=== PATIENT | female | born 1975 | race Hispanic/Latino ===

== ENCOUNTER 2017-11-13 16:16 | Emergency (ER) | payer SELFPAY ==
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
[2017-11-13] MEDS ORDERED: Acetaminophen/Codeine 30-300mg Tablet ONE ×2 (17:29→17:36)
[2017-11-13] MEDS ORDERED: Ketorolac Tromethamine 30 MG/ML VIAL ONE (17:29)
== END 2017-11-13 18:23 | disposition home or self-care (01) ==
LOC: ERS 16:16
DX: S52.601A Unspecified fracture of lower end of right ulna, initial encounter for closed fracture (principal); M06.9 Rheumatoid arthritis, unspecified; F32.9 Major depressive disorder, single episode, unspecified; F17.210 Nicotine dependence, cigarettes, uncomplicated; W22.8XXA Striking against or struck by other objects, initial encounter
CPT/HCPCS: 96372; J1885

== ENCOUNTER 2018-02-22 00:53 | Inpatient (IN) | payer SELFPAY ==
[2018-02-22] MEDS ORDERED: Ketorolac Tromethamine 30 MG/ML VIAL ONE (01:44)
[2018-02-22] MEDS ORDERED: Morphine 4 MG/ML VIAL SLOW IVP PRN (04:26)
[2018-02-22] MEDS ORDERED: Ondansetron HCl/PF 4 MG/2 ML Vial IVP PRN ×3 (04:26→05:38)
[2018-02-22] MEDS ORDERED: Ondansetron ODT 4 MG TAB SL PRN (04:26)
[2018-02-22 04:57] VITALS: BMI 33.0
[2018-02-22] MEDS ORDERED: Dextrose 5% in Water 1,000 ML IV PRN (05:05)
[2018-02-22] MEDS ORDERED: Ondansetron ODT 4 MG TAB PO PRN ×2 (05:05→05:38)
[2018-02-22] MEDS ORDERED: Dextrose 50% Abboject 50 ML SYRINGE SLOW IVP PRN (05:05)
[2018-02-22] MEDS ORDERED: traMADol HCl 50 MG TAB PO PRN ×2 (05:05)
[2018-02-22] MEDS ORDERED: Cyclobenzaprine 10 MG TAB PO PRN (05:05)
[2018-02-22] MEDS ORDERED: Promethazine HCl 25 MG/ML VIAL IM PRN ×2 (05:05)
[2018-02-22] MEDS ORDERED: Acetaminophen 1,000 MG in Premix Bag 1 BAG IVPB SCH (05:05)
[2018-02-22] MEDS ORDERED: hydrALAZINE 20 MG/ML VIAL SLOW IVP PRN (05:38)
[2018-02-22 06:26] LABS: #Eosinphils 0.1 thou/uL (0.0-0.7); #Lymphocytes 2.5 thou/uL (1.20-3.40); #Monocytes 1.2 thou/uL (0.11-0.59); #Neutrophils 13.5 thou/uL (1.40-6.50); %Basophils 0.2 % (0.0-1.0); %Eosinophils 0.4 % (0.0-10.0); %Lymphocytes 14.4 % (21.0-51.0); %Monocytes 6.7 % (0.0-10.0); %Neutrophils 78.4 % (42.0-75.0); Mean Corpuscular HGB CONC 33.6 g/dL (32.0-36.0); Mean Corpuscular Hemoglobin 32.7 pg (27.0-31.0); Mean Corpuscular Volume 97.4 fL (78.0-98.0); Mean Platelet Volume 7.1 fL (7.4-10.4); Platelet Count 224 thou/uL (130-400); RBC Distribution Width 11.3 % (11.5-14.5); Red Blood Cell (RBC) Count 3.97 mill/uL (4.20-5.40); White Blood Cell (WBC) Count 17.2 thou/uL (4.8-10.8)
[2018-02-22] MEDS: Sodium Chloride 0.9% 1,000 ML IV SCH ×2 (06:26→17:12)
[2018-02-22] MEDS: Ibuprofen 800 MG TAB PO SCH ×2 (06:27→17:12)
[2018-02-22 06:41] LABS: ALT (SGPT) 16 U/L (8-55); AST (SGOT) 15 U/L (5-34); Albumin 3.7 g/dL (3.5-5.0); Alkaline Phosphatase 59 U/L (40-150); Anion Gap 9 mmol/L (10-20); BUN (Urea Nitrogen) 13 mg/dL (7.0-18.7); Bilirubin, Total 0.5 mg/dL (0.2-1.2); Calc. Creatinine Clearance 152 mL/min (70-130); Calcium 8.4 mg/dL (7.8-10.44); Carbon Dioxide 24 mmol/L (22-29); Chloride 108 mmol/L (98-107); Estimated GFR-MDRD Greater than 90; Globulin 2.3 g/dL (2.4-3.5); Glucose 100 mg/dL (70-105); Potassium 3.9 mmol/L (3.5-5.1); Sodium 137 mmol/L (136-145)
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
[2018-02-22] MEDS ORDERED: Famotidine 20 MG TAB PO SCH ×2 (09:00)
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
[2018-02-22] MEDS ORDERED: Acetaminophen 500 MG TAB PO SCH (12:00)
[2018-02-22] MEDS ORDERED: HYDROcodone/Acetaminophen 7.5/325 mg Tablet PO SCH (13:15)
[2018-02-22] MEDS ORDERED: ISOVUE-370 76%-LOCM 1 ML ONE (15:15)
[2018-02-22 17:07] VITALS: BP 105/69; TEMP 97.8
== END 2018-02-22 17:14 | disposition home or self-care (01) | DRG 565 ==
LOC: ERS 00:53 → SURG A 02:44
PROVIDERS: ADMIT Specialist; ATTEND Specialist
DX: S22.20XA Unspecified fracture of sternum, initial encounter for closed fracture (principal); S06.0X9A Concussion with loss of consciousness of unspecified duration, initial encounter; M19.90 Unspecified osteoarthritis, unspecified site; M79.7 Fibromyalgia; M06.9 Rheumatoid arthritis, unspecified; F17.210 Nicotine dependence, cigarettes, uncomplicated; Z88.0 Allergy status to penicillin; V89.2XXA Person injured in unspecified motor-vehicle accident, traffic, initial encounter
CPT/HCPCS: 36415; 70450; 71045; 71260; 72125; 74177; 80053; 85025; 94640; 96374; 96375; G0390; J0131; J1885; J2270; J7620; L0120

== ENCOUNTER 2018-06-27 17:34 | Emergency (ER) | payer OTHER, SELFPAY ==
[2018-06-27 18:55] LABS: #Eosinphils 0.1 thou/uL (0.0-0.7); #Lymphocytes 2.5 thou/uL (1.20-3.40); #Monocytes 0.9 thou/uL (0.11-0.59); #Neutrophils 7.5 thou/uL (1.40-6.50); %Basophils 0.3 % (0.0-1.0); %Eosinophils 1.2 % (0.0-10.0); %Lymphocytes 22.8 % (21.0-51.0); %Monocytes 8.1 % (0.0-10.0); %Neutrophils 67.6 % (42.0-75.0); Hemoglobin 14.5 g/dL (12.0-16.0); Platelet Count 291 thou/uL (130-400); RBC Distribution Width 11.9 % (11.5-14.5); Red Blood Cell (RBC) Count 4.38 mill/uL (4.20-5.40)
[2018-06-27 18:57] LABS: Bilirubin Negative (Negative); Blood, Urine Negative (Negative); Clarity CLOUDY (Clear); Glucose, Urine (Dipstick) Negative (Negative); Leukocyte Negative (Negative); Nitrite Negative (Negative); Protein, Urine (Dipstick) Negative (Neg-Trace); Specific Gravity, Urine 1.018 (1.002-1.036)
[2018-06-27 19:03] LABS: BHCG - Serum Negative (NEGATIVE); Pregs Control Background? CLEAR/WHITE (CLR/WHITE); Pregs Control Bar Appear? YES (CONTROL BAR)
[2018-06-27 19:07] LABS: Amphetamine Not Detected (NotDetected); Barbiturates Screen Not Detected (NotDetected); Benzodiazepine Screen Not Detected (NotDetected); Cocaine Metabolite Screen Not Detected (NotDetected); Medtox Control Line Valid? VALID (VALID); Medtox Reader # READER 4; Methadone Not Detected (NotDetected); Methamphetamine Not Detected (NotDetected); Opiate Screen Not Detected (NotDetected); Oxycodone Screen Not Detected (NotDetected); Phencyclidine (PCP) Not Detected (NotDetected); THC/Cannabinoid Screen Detected (NotDetected); Tricyclic Screen Detected (NotDetected)
[2018-06-27 19:13] LABS: ALT (SGPT) 10 U/L (8-55); AST (SGOT) 10 U/L (5-34); Albumin 4.1 g/dL (3.5-5.0); Alkaline Phosphatase 74 U/L (40-150); Anion Gap 14 mmol/L (10-20); BUN (Urea Nitrogen) 9 mg/dL (7.0-18.7); Bilirubin, Total 0.4 mg/dL (0.2-1.2); Calc. Creatinine Clearance 0 mL/min (70-130); Calcium 9.3 mg/dL (7.8-10.44); Carbon Dioxide 24 mmol/L (22-29); Chloride 106 mmol/L (98-107); Estimated GFR-MDRD 78; Globulin 2.4 g/dL (2.4-3.5); Glucose 93 mg/dL (70-105); Potassium 3.8 mmol/L (3.5-5.1); Protein, Total 6.5 g/dL (6.0-8.3); Sodium 140 mmol/L (136-145)
[2018-06-27 19:14] LABS: Acetaminophen Less than 6.0 mcg/mL (10.0-30.0); Alcohol Less than 10 mg/dL (Less than 10); Salicylate Less than 8.0 mg/dL (15.0-30.0)
[2018-06-27] MEDS ORDERED: Haloperidol Lactate 5 MG/ML VIAL ONE (20:54)
[2018-06-27] MEDS ORDERED: Lorazepam 2 MG/ML VIAL ONE (20:54)
[2018-06-28] MEDS ORDERED: hydrOXYzine 25 MG TAB ONE (10:17)
[2018-06-28] MEDS ORDERED: Nicotine 7 MG PATCH TOP SCH (15:00)
[2018-06-28] MEDS ORDERED: Ziprasidone 20 MG CAP ONE (15:24)
[2018-06-28] MEDS ORDERED: Lorazepam 1 MG TAB ONE (19:09)
== END 2018-06-27 22:57 | disposition home or self-care (01) ==
LOC: ERS 17:34
DX: T16.2XXA Foreign body in left ear, initial encounter (principal); F29 Unspecified psychosis not due to a substance or known physiological condition; F17.210 Nicotine dependence, cigarettes, uncomplicated; Y04.2XXA Assault by strike against or bumped into by another person, initial encounter
CPT/HCPCS: 36415; 69200; 80053; 80306; 80307; 81003; 84443; 84703; 85025; 93005; 96372; J1630; J2060

== ENCOUNTER 2018-07-03 15:26 | Emergency (ER) | payer SELFPAY ==
[2018-07-03] MEDS ORDERED: Lorazepam 2 MG/ML VIAL ONE (15:46)
[2018-07-03] MEDS ORDERED: Haloperidol Lactate 5 MG/ML VIAL ONE (15:47)
[2018-07-03 16:32] LABS: #Lymphocytes 1.9 thou/uL (1.20-3.40); #Monocytes 0.5 thou/uL (0.11-0.59); #Neutrophils 7.8 thou/uL (1.40-6.50); %Basophils 0.3 % (0.0-1.0); %Eosinophils 0.4 % (0.0-10.0); %Lymphocytes 18.4 % (21.0-51.0); %Monocytes 4.4 % (0.0-10.0); %Neutrophils 76.5 % (42.0-75.0); Hemoglobin 14.8 g/dL (12.0-16.0); Mean Corpuscular HGB CONC 33.7 g/dL (32.0-36.0); Mean Corpuscular Hemoglobin 32.8 pg (27.0-31.0); Mean Corpuscular Volume 97.2 fL (78.0-98.0); Mean Platelet Volume 6.9 fL (7.4-10.4); Platelet Count 247 thou/uL (130-400); RBC Distribution Width 11.8 % (11.5-14.5); Red Blood Cell (RBC) Count 4.51 mill/uL (4.20-5.40); White Blood Cell (WBC) Count 10.2 thou/uL (4.8-10.8)
[2018-07-03 16:53] LABS: ALT (SGPT) 12 U/L (8-55); AST (SGOT) 12 U/L (5-34); Acetaminophen Less than 6.0 mcg/mL (10.0-30.0); Albumin 4.3 g/dL (3.5-5.0); Alcohol 194 mg/dL (Less than 10); Alkaline Phosphatase 71 U/L (40-150); Anion Gap 15 mmol/L (10-20); BUN (Urea Nitrogen) 9 mg/dL (7.0-18.7); Bilirubin, Total 0.4 mg/dL (0.2-1.2); Calc. Creatinine Clearance 0 mL/min (70-130); Calcium 9.5 mg/dL (7.8-10.44); Carbon Dioxide 20 mmol/L (22-29); Chloride 110 mmol/L (98-107); Estimated GFR-MDRD 70; Globulin 2.6 g/dL (2.4-3.5); Glucose 99 mg/dL (70-105); Potassium 3.4 mmol/L (3.5-5.1); Protein, Total 6.9 g/dL (6.0-8.3); Salicylate Less than 8.0 mg/dL (15.0-30.0); Sodium 142 mmol/L (136-145)
== END 2018-07-03 17:26 ==
LOC: ERS 15:26
DX: F29 Unspecified psychosis not due to a substance or known physiological condition (principal); Z02.89 Encounter for other administrative examinations; F41.9 Anxiety disorder, unspecified; F31.9 Bipolar disorder, unspecified; F20.9 Schizophrenia, unspecified; F17.210 Nicotine dependence, cigarettes, uncomplicated
CPT/HCPCS: 80053; 80307; 85025; 96372; J1630; J2060

== ENCOUNTER 2018-07-16 12:25 | Emergency (ER) | payer SELFPAY ==
[2018-07-16] MEDS ORDERED: Sterile Water 10 ML VIAL FS PRN (12:43)
[2018-07-16] MEDS ORDERED: Ziprasidone 20 MG VIAL IM SCH (12:45)
[2018-07-16 13:02] LABS: #Basophils 0.1 thou/uL (0.0-0.2); #Eosinphils 0.1 thou/uL (0.0-0.7); #Lymphocytes 2.2 thou/uL (1.20-3.40); #Monocytes 0.5 thou/uL (0.11-0.59); #Neutrophils 6.1 thou/uL (1.40-6.50); %Basophils 0.8 % (0.0-1.0); %Eosinophils 1.5 % (0.0-10.0); %Lymphocytes 24.2 % (21.0-51.0); %Monocytes 5.7 % (0.0-10.0); %Neutrophils 67.8 % (42.0-75.0); Hemoglobin 14.5 g/dL (12.0-16.0); Mean Corpuscular HGB CONC 33.6 g/dL (32.0-36.0); Mean Corpuscular Hemoglobin 33.2 pg (27.0-31.0); Mean Corpuscular Volume 98.7 fL (78.0-98.0); Mean Platelet Volume 6.7 fL (7.4-10.4); Platelet Count 292 thou/uL (130-400); RBC Distribution Width 11.7 % (11.5-14.5); Red Blood Cell (RBC) Count 4.38 mill/uL (4.20-5.40)
[2018-07-16 13:17] LABS: Acetaminophen Less than 6.0 mcg/mL (10.0-30.0); Alcohol Less than 10 mg/dL (Less than 10); Salicylate Less than 8.0 mg/dL (15.0-30.0)
[2018-07-16 13:18] LABS: ALT (SGPT) 13 U/L (8-55); AST (SGOT) 13 U/L (5-34); Albumin 4.1 g/dL (3.5-5.0); Alkaline Phosphatase 71 U/L (40-150); Anion Gap 15 mmol/L (10-20); BUN (Urea Nitrogen) 13 mg/dL (7.0-18.7); Bilirubin, Total 0.3 mg/dL (0.2-1.2); Calc. Creatinine Clearance 0 mL/min (70-130); Calcium 9.5 mg/dL (7.8-10.44); Carbon Dioxide 21 mmol/L (22-29); Chloride 103 mmol/L (98-107); Estimated GFR-MDRD 80; Globulin 2.7 g/dL (2.4-3.5); Glucose 106 mg/dL (70-105); Protein, Total 6.8 g/dL (6.0-8.3); Sodium 135 mmol/L (136-145)
[2018-07-16 13:43] LABS: Bilirubin Negative (Negative); Blood, Urine Negative (Negative); Clarity CLOUDY (Clear); Glucose, Urine (Dipstick) Negative (Negative); Leukocyte Negative (Negative); Nitrite Negative (Negative); Protein, Urine (Dipstick) 30 mg/dL (Neg-Trace); Specific Gravity, Urine 1.013 (1.002-1.036); Urobilinogen 0.2 mg/dL (0.2-1.0)
[2018-07-16 13:48] LABS: Bacteria/HPF None Seen HPF (None Seen); Hyaline Casts/LPF 7-10 HYALINE CAST LPF (0-3 Hyaline); Pathc Cast-AUWi Flag 0.68 (0-2.49); RBC/HPF 0-3 HPF (0-3); Squamous Epithelial 0-3 HPF (0-3); WBC/HPF None Seen HPF (0-3)
[2018-07-16 14:05] LABS: Amphetamine Not Detected (NotDetected); Barbiturates Screen Not Detected (NotDetected); Benzodiazepine Screen Not Detected (NotDetected); Cocaine Metabolite Screen Not Detected (NotDetected); Medtox Control Line Valid? VALID (VALID); Medtox Reader # READER 1; Methadone Not Detected (NotDetected); Methamphetamine Not Detected (NotDetected); Opiate Screen Detected (NotDetected); Oxycodone Screen Not Detected (NotDetected); Phencyclidine (PCP) Not Detected (NotDetected); THC/Cannabinoid Screen Not Detected (NotDetected); Tricyclic Screen Not Detected (NotDetected)
[2018-07-16] MEDS ORDERED: traZODone HCl 50 MG TAB ONE (20:04)
[2018-07-16] MEDS ORDERED: hydrOXYzine Pamoate 25 mg Capsule ONE (20:04)
[2018-07-17] MEDS ORDERED: risperiDONE 1 MG TAB ONE (07:42)
[2018-07-17] MEDS ORDERED: hydrOXYzine Pamoate 25 mg Capsule ONE (07:42)
[2018-07-17] MEDS ORDERED: Nicotine 14 MG PATCH TOP SCH (08:00)
[2018-07-17] MEDS ORDERED: Acetaminophen 325 MG TAB ONE (14:57)
[2018-07-17] MEDS ORDERED: Ziprasidone 20 MG VIAL ONE (16:35)
[2018-07-18] MEDS ORDERED: Acetaminophen 325 MG TAB ONE (05:19)
[2018-07-18] MEDS ORDERED: risperiDONE 1 MG TAB ONE (07:11)
[2018-07-18] MEDS ORDERED: hydrOXYzine 25 MG TAB ONE (11:15)
== END 2018-07-18 12:22 ==
LOC: ERS 12:25
DX: F29 Unspecified psychosis not due to a substance or known physiological condition (principal); F41.9 Anxiety disorder, unspecified; F31.9 Bipolar disorder, unspecified; F20.9 Schizophrenia, unspecified; F17.210 Nicotine dependence, cigarettes, uncomplicated
CPT/HCPCS: 51701; 80053; 80306; 80307; 81003; 81015; 84443; 85025; 93005; 96372; A4353; J3486; Q0177

== ENCOUNTER 2021-01-16 02:59 | Observation (INO) | payer SELFPAY ==
[2021-01-16] MEDS ORDERED: Ketorolac Tromethamine 30 MG/ML VIAL ONE ×2 (03:24→14:24)
[2021-01-16 04:03] LABS: #Lymphocytes 1.6 thou/uL (1.20-3.40); #Monocytes 0.9 thou/uL (0.11-0.59); #Neutrophils 17.1 thou/uL (1.40-6.50); %Basophils 0.1 % (0.0-1.0); %Eosinophils 0.2 % (0.0-10.0); %Monocytes 4.4 % (0.0-10.0); %Neutrophils 87.3 % (42.0-75.0); Hemoglobin 12.5 g/dL (12.0-16.0); Mean Corpuscular HGB CONC 32.9 g/dL (32.0-36.0); Mean Corpuscular Hemoglobin 29.3 pg (27.0-31.0); Mean Platelet Volume 7.8 fL (7.4-10.4); Platelet Count 314 thou/uL (130-400); RBC Distribution Width 14.2 % (11.5-14.5); Red Blood Cell (RBC) Count 4.27 mill/uL (4.20-5.40); White Blood Cell (WBC) Count 19.5 thou/uL (4.8-10.8)
[2021-01-16 04:19] LABS: Bacteria/HPF None Seen HPF (None Seen); Bilirubin Negative (Negative); Blood, Urine 3+ (Negative); Clarity Turbid (Clear); Glucose, Urine (Dipstick) Normal (Negative); Ketone, Urine Negative (Negative); Leukocyte 25 Leu/uL (Negative); Mucous/LPF Rare LPF (<2+); Nitrite Negative (Negative); Protein, Urine (Dipstick) 20 mg/dL (Neg-Trace); RBC/HPF Greater than 50 HPF (0-3); Specific Gravity, Urine 1.026 (1.002-1.036); Squamous Epithelial 0-3 HPF (0-3); Urobilinogen Normal mg/dL (Less than 2)
[2021-01-16] MEDS ORDERED: Ondansetron PF 4 MG/2 ML Vial ONE ×3 (04:27→14:24)
[2021-01-16 04:30] LABS: ALT (SGPT) 24 U/L (8-55); AST (SGOT) 38 U/L (5-34); Albumin 4.2 g/dL (3.5-5.0); Alkaline Phosphatase 92 U/L (40-110); Anion Gap 11 mmol/L (10-20); BUN (Urea Nitrogen) 10 mg/dL (7.0-18.7); Bilirubin, Total 0.3 mg/dL (0.2-1.2); Calc. Creatinine Clearance 0 mL/min (70-130); Calcium 9.4 mg/dL (7.8-10.44); Carbon Dioxide 29 mmol/L (22-29); Chloride 103 mmol/L (98-107); Globulin 3.3 g/dL (2.4-3.5); Glucose 123 mg/dL (70-105); Lipase 19 U/L (8-78); Potassium 3.8 mmol/L (3.5-5.1); Protein, Total 7.5 g/dL (6.0-8.3); Sodium 139 mmol/L (136-145)
[2021-01-16] MEDS ORDERED: Morphine 4 MG/ML VIAL ONE (06:28)
[2021-01-16] MEDS ORDERED: Piperacillin/Tazobactam 3.375 GM VIAL ONE (08:07)
[2021-01-16 08:09] LABS: SARS-CoV-2 NAA Rapid Test Not Detected (NotDetected)
[2021-01-16] MEDS ORDERED: Iopamidol-370 76% 500 ML 1 ML ONE (08:53)
[2021-01-16] MEDS ORDERED: Rocuronium Bromide 10 MG/ML (10ML VIAL) ONE (14:24)
[2021-01-16] MEDS ORDERED: Lidocaine 1% PF 5 ML VIAL ONE (14:24)
[2021-01-16] MEDS ORDERED: Glycopyrrolate 0.2 MG/ML 5 ML SYRINGE ONE (14:24)
[2021-01-16] MEDS ORDERED: PROPOFOL 200 MG/20 ML VIAL ONE (14:24)
[2021-01-16] MEDS ORDERED: Dexamethasone 20 MG/5 ML VIAL ONE (14:24)
[2021-01-16] MEDS ORDERED: Succinylcholine 200 MG/10 ml SYRINGE FS ONE (14:24)
[2021-01-16] MEDS ORDERED: Fentanyl 100 MCG/2 ML VIAL ONE (16:04)
== END 2021-01-16 17:50 ==
LOC: ERS 02:59 → ERHOLD 06:27
PROVIDERS: ADMIT Specialist; ATTEND Specialist
PROC: 0FT44ZZ Resection of Gallbladder, Percutaneous Endoscopic Approach (ICD-10-PCS; principal; 2021-01-16)
DX: K80.12 Calculus of gallbladder with acute and chronic cholecystitis without obstruction (principal); M19.90 Unspecified osteoarthritis, unspecified site; F17.210 Nicotine dependence, cigarettes, uncomplicated; M79.7 Fibromyalgia; M06.9 Rheumatoid arthritis, unspecified; Z18.10 Retained metal fragments, unspecified; Z20.822 Contact with and (suspected) exposure to COVID-19
CPT/HCPCS: 71045; 74177; 76705; 81003; 81015; 83690; 84484; 85025; 88304; 93005; 96365; 96375; 96376; G0378; J1100; J1885; J2270; J2405; J2543; J2704; J3010; Q9967; U0002

== ENCOUNTER 2021-08-16 16:37 | Emergency (ER) | payer MEDICAID, SELFPAY | END 2021-08-16 17:54 | disposition home or self-care (01) | LOC: ERS 16:37 | DX: F41.9 Anxiety disorder, unspecified (principal); F17.210 Nicotine dependence, cigarettes, uncomplicated | CPT/HCPCS: 99283 ==

== ENCOUNTER 2021-10-05 12:24 | Emergency (ER) | payer SELFPAY ==
[2021-10-05] MEDS ORDERED: Lorazepam 2 MG/ML VIAL ONE (12:36)
[2021-10-05] MEDS ORDERED: Haloperidol Lactate 5 MG/ML VIAL ONE ×2 (12:37→23:06)
[2021-10-05] MEDS ORDERED: diphenhydrAMINE 50 MG/ML VIAL ONE (12:37)
[2021-10-05 13:14] LABS: #Basophils 0.1 thou/uL (0.0-0.2); #Lymphocytes 2.7 thou/uL (1.20-3.40); #Monocytes 0.9 thou/uL (0.11-0.59); #Neutrophils 9.1 thou/uL (1.40-6.50); %Basophils 0.4 % (0.0-1.0); %Eosinophils 0.4 % (0.0-10.0); %Lymphocytes 21.2 % (21.0-51.0); %Monocytes 7.2 % (0.0-10.0); %Neutrophils 70.8 % (42.0-75.0); Hemoglobin 11.7 g/dL (12.0-16.0); Mean Corpuscular HGB CONC 31.8 g/dL (32.0-36.0); Mean Corpuscular Hemoglobin 28.5 pg (27.0-31.0); Mean Corpuscular Volume 89.5 fL (78.0-98.0); Platelet Count 321 thou/uL (130-400); RBC Distribution Width 17.6 % (11.5-14.5); White Blood Cell (WBC) Count 12.8 thou/uL (4.8-10.8)
[2021-10-05 13:38] LABS: Acetaminophen Less than 10.0 mcg/mL (10.0-30.0); Alcohol Less than 10 mg/dL (Less than 10); Salicylate Less than 8.0 mg/dL (15.0-30.0)
[2021-10-05 13:43] LABS: ALT (SGPT) 10 U/L (8-55); AST (SGOT) 11 U/L (5-34); Albumin 4.2 g/dL (3.5-5.0); Alcohol Less than 10 mg/dL (Less than 10); Alkaline Phosphatase 92 U/L (40-110); Anion Gap 14 mmol/L (10-20); BUN (Urea Nitrogen) 15 mg/dL (7.0-18.7); Bilirubin, Total 1.1 mg/dL (0.2-1.2); CK (CPK) 79 U/L (29-168); Calc. Creatinine Clearance 0 mL/min (70-130); Calcium 9.1 mg/dL (7.8-10.44); Carbon Dioxide 23 mmol/L (22-29); Chloride 103 mmol/L (98-107); Globulin 3.1 g/dL (2.4-3.5); Glucose 115 mg/dL (70-105); Potassium 3.7 mmol/L (3.5-5.1); Protein, Total 7.3 g/dL (6.0-8.3); Sodium 136 mmol/L (136-145)
[2021-10-05 18:07] LABS: Bacteria/HPF None Seen HPF (None Seen); Bilirubin Negative (Negative); Blood, Urine Negative (Negative); Clarity Clear (Clear); Glucose, Urine (Dipstick) Normal (Negative); Ketone, Urine 40 mg/dL (Negative); Leukocyte 75 Leu/uL (Negative); Nitrite Negative (Negative); Protein, Urine (Dipstick) 20 mg/dL (Neg-Trace); RBC/HPF 0-3 HPF (0-3); Squamous Epithelial 0-3 HPF (0-3); Urobilinogen Normal mg/dL (Less than 2); WBC/HPF 0-3 HPF (0-3); pH, Urine 6.5 (5.0-9.0)
[2021-10-05 18:12] LABS: Pregnancy Test - Urine (BHCG) Negative (Negative); Pregu Control Background? CLEAR/WHITE (CLR/WHITE); Pregu Control Bar Appear? YES (CONTROL BAR)
[2021-10-05 18:13] LABS: Amphetamine Detected (NotDetected); Barbiturates Screen Not Detected (NotDetected); Benzodiazepine Screen Detected (NotDetected); Cocaine Metabolite Screen Not Detected (NotDetected); Methadone Not Detected (NotDetected); Methamphetamine Detected (NotDetected); Opiate Screen Not Detected (NotDetected); Oxycodone Screen Not Detected (NotDetected); Phencyclidine (PCP) Not Detected (NotDetected); THC/Cannabinoid Screen Detected (NotDetected); Tricyclic Screen Not Detected (NotDetected)
[2021-10-06] MEDS ORDERED: Haloperidol Lactate 5 MG/ML VIAL ONE (03:29)
[2021-10-06] MEDS ORDERED: Ziprasidone 20 MG VIAL ONE ×2 (08:15→13:33)
[2021-10-06] MEDS ORDERED: FLUoxetine HCl 20 MG CAP PO SCH (08:45)
== END 2021-10-05 23:24 | disposition home or self-care (01) ==
LOC: ERS 12:24
DX: F23 Brief psychotic disorder (principal); F19.10 Other psychoactive substance abuse, uncomplicated; R00.0 Tachycardia, unspecified; F17.210 Nicotine dependence, cigarettes, uncomplicated; Z79.899 Other long term (current) drug therapy
CPT/HCPCS: 70450; 80053; 80306; 80307; 81003; 81015; 81025; 82550; 84443; 85025; 93005; 96372; J1200; J1630; J2060

== ENCOUNTER 2022-03-15 05:01 | Emergency (ER) | payer SELFPAY ==
[2022-03-15] MEDS ORDERED: Ketorolac Tromethamine 30 MG/ML VIAL ONE (06:20)
[2022-03-15] MEDS ORDERED: Acetaminophen 500 MG TAB ONE (06:23)
== END 2022-03-15 06:29 | disposition home or self-care (01) ==
LOC: ERS 05:01
DX: F10.129 Alcohol abuse with intoxication, unspecified (principal); F17.210 Nicotine dependence, cigarettes, uncomplicated; F12.10 Cannabis abuse, uncomplicated
CPT/HCPCS: 36415; 80307; 99284; J1885

== ENCOUNTER 2022-06-01 02:20 | Emergency (ER) | payer SELFPAY ==
[2022-06-01 02:49] LABS: #Lymphocytes 1.5 thou/uL (1.20-3.40); #Monocytes 0.8 thou/uL (0.11-0.59); %Basophils 0.3 % (0.0-1.0); %Eosinophils 0.1 % (0.0-10.0); %Lymphocytes 9.8 % (21.0-51.0); %Monocytes 5.1 % (0.0-10.0); %Neutrophils 84.8 % (42.0-75.0); Hemoglobin 11.7 g/dL (12.0-16.0); Mean Corpuscular HGB CONC 34.4 g/dL (32.0-36.0); Mean Corpuscular Hemoglobin 29.3 pg (27.0-31.0); Mean Corpuscular Volume 85.2 fl (78.0-98.0); Platelet Count 264 10x3/uL (130-400); RBC Distribution Width 14.7 % (11.5-14.5); Red Blood Cell (RBC) Count 3.99 mill/uL (4.20-5.40); White Blood Cell (WBC) Count 15.3 10x3/uL (4.8-10.8)
[2022-06-01 02:57] LABS: BHCG - Serum Negative (NEGATIVE); Pregs Control Background? CLEAR/WHITE (CLR/WHITE); Pregs Control Bar Appear? YES (CONTROL BAR)
[2022-06-01 03:06] LABS: ALT (SGPT) 13 U/L (8-55); AST (SGOT) 31 U/L (5-34); Albumin 4.3 g/dL (3.5-5.0); Alkaline Phosphatase 93 U/L (40-110); Anion Gap 19 mmol/L (10-20); BUN (Urea Nitrogen) 12 mg/dL (7.0-18.7); Bilirubin, Total 0.6 mg/dL (0.2-1.2); Calc. Creatinine Clearance 0 mL/min (70-130); Calcium 8.7 mg/dL (7.8-10.44); Carbon Dioxide 20 mmol/L (22-29); Chloride 104 mmol/L (98-107); Estimated GFR 93; Glucose 83 mg/dL (70-105); Potassium 4.3 mmol/L (3.5-5.1); Protein, Total 7.3 g/dL (6.0-8.3); Sodium 139 mmol/L (136-145)
[2022-06-01] MEDS ORDERED: Acetaminophen 500 MG TAB ONE (04:26)
== END 2022-06-01 05:40 | disposition home or self-care (01) ==
LOC: ERS 02:20
DX: R00.2 Palpitations (principal); R00.0 Tachycardia, unspecified; D72.829 Elevated white blood cell count, unspecified; F17.210 Nicotine dependence, cigarettes, uncomplicated
CPT/HCPCS: 71045; 80053; 83735; 84443; 84484; 84703; 85025; 93005

== ENCOUNTER 2022-06-03 10:43 | Emergency (ER) | payer SELFPAY | END 2022-06-03 11:24 | LOC: ERS 10:43 | DX: F29 Unspecified psychosis not due to a substance or known physiological condition (principal) | CPT/HCPCS: 99284 ==